=== PATIENT | female | born 1985 | race Caucasian/White ===

== ENCOUNTER 2016-09-06 01:27 | Emergency (ER) | payer BC, MEDICAID ==
[~2016-09-06] VITALS: Ht 170.2 cm; Wt 87.1 kg
[2016-09-06 01:30] VITALS: BP 143/59; PULSE 138; RESP 20; TEMP 101.3; O2SAT 95
--- NOTE | 2016-09-06 01:30 | NUR ---
Patient to ER bed 4 to gown for evaluation. Side rails up. Report given to Chela CLEANING.
--- NOTE | 2016-09-06 01:43 | NUR ---
High risk of SEPSIS. ER MD Coronel aware.
--- NOTE | 2016-09-06 01:50 | NUR ---
Pt in bed 8 with c/o flu like symptoms. Dr Coronel aware.
--- NOTE | 2016-09-06 01:51 | NUR ---
ER at bedside examining patient.
[2016-09-06 02:10] LABS: BILIRUBIN,URINE NEGATIVE (NEGATIVE); BLOOD, URINE NEGATIVE (NEGATIVE); CLARITY/URINE CLEAR (CLEAR); COLOR,URINE YELLOW (YELLOW); GLUCOSE,URINE NEGATIVE (NEGATIVE); KETONES,URINE NEGATIVE (NEGATIVE); LEUKOCYTE ESTERASE ,URINE TRACE (NEGATIVE); NITRITE, URINE NEGATIVE (NEGATIVE); PROTEIN URINE NEGATIVE (NEGATIVE); UROBILINOGEN,URINE 0.2 (0.2-1.0)
[2016-09-06] MEDS ORDERED: ACETAMINOPHEN 500 MG TABLET PO ONE (02:15)
--- NOTE | 2016-09-06 02:20 | NUR ---
# 22 gauge angiocath placed to LAC. Use of asceptic technique. Opsite placed over site. Blood return noted. Blood for lab drawn from site. Flushed with 10 cc of normal saline. No evidence of infiltration noted. Patient tolerated well.
[2016-09-06] MEDS ORDERED: ACETAMINOPHEN 500 MG TABLET ONE (02:22)
[2016-09-06 02:29] LABS: BACTERIA,URINE FEW /HPF (None Seen); MUCUS,URINE None Seen /LPF (None Seen); RBC,URINE 0-3 /HPF (0-3); WBC,URINE 0-3 /HPF (0-3)
[2016-09-06 02:35] LABS: BARBITURATE, URINE NEGATIVE (NEG <=200); BENZODIAZEPINE, URINE NEGATIVE (NEG <=150); CANNABINOID, URINE NEGATIVE (NEG <=50); COCAINE, URINE NEGATIVE (NEG <=150); METHAMPHETAMINES SCREEN,URINE NEGATIVE (NEG <=500); OPIATE, URINE NEGATIVE (NEG <=100); PHENCYCLIDINE SCREEN,URINE NEGATIVE (NEG <=25); UR TRICYCLIC ANTIDEPRESSANTS NEGATIVE (NEG <=300); URINE AMPHETAMINE NEGATIVE (NEG <=500); URINE METHADONE NEGATIVE (NEG <=200); URINE OXYCODONE SCREEN NEGATIVE (NEG <=100); URINE PROPOXYPHENE SCREEN NEGATIVE (NEG <=300)
[2016-09-06] MEDS ORDERED: NACL 0.9% 1,000 ML IV ONE (02:45)
[2016-09-06 03:28] LABS: BASOPHILS % (AUTO) 0.2 % (0.0-2.0); EOSINOPHILS # (AUTO) 0.2 K/uL (0.0-0.4); HEMATOCRIT 39.4 % (36-48); HEMOGLOBIN 13.3 g/dL (12.0-16.0); LYMPHOCYTES # (AUTO) 0.5 K/uL (1.0-5.5); LYMPHOCYTES % (AUTO) 5.1 % (20.5-51.5); MEAN CORPUSCULAR HEMOGLOBIN 29 pg (27-31); MEAN CORPUSCULAR HGB CONC 34 % (32-36); MEAN CORPUSCULAR VOLUME 87 fL (79.0-98.0); MONOCYTES # (AUTO) 0.6 K/uL (0.0-1.0); MONOCYTES % (AUTO) 6.4 % (1.7-9.3); NEUTROPHILS # (AUTO) 8.2 K/uL (1.8-7.7); NEUTROPHILS % (AUTO) 86.3 % (40.0-70.0); PLATELET COUNT (AUTO) 137 K/uL (130-430); RED BLOOD CELL COUNT(AUTO) 4.54 MIL/uL (4.2-6.2); RED CELL DISTRIBUTION WIDTH 12.1 % (9.0-15.0); WHITE BLOOD COUNT (AUTO) 9.5 K/uL (4.8-10.8)
--- NOTE | 2016-09-06 03:30 | NUR ---
temp quita now 98.[address] Coronel aware.
[2016-09-06 03:46] LABS: ALBUMIN 3.6 g/dL (3.4-4.8); CALCIUM 9.3 mg/dL (8.4-11.0); CREATININE 0.71 mg/dL (0.55-1.30); TOTAL BILIRUBIN 0.3 mg/dL (0.0-1.0); TOTAL PROTEIN, SERUM 7.3 g/dL (6.4-8.3)
--- NOTE | 2016-09-06 04:23 | NUR ---
Patient given written and verbal discharge instructions and verbalizes understanding. ER MD discussed with patient the results and treatment provided. Given copies of tests performed in ER. Patient in stable condition. ID arm band removed. IV catheter removed intact and dressing applied, no active bleeding. Rx of cephalexin given. Patient educated on pain management and to follow up with PMD. Pain Scale 0/10. Opportunity for questions provided and answered.
[2016-09-06 04:25] VITALS: BP 113/62; PULSE 88; RESP 18; TEMP 98.6; O2SAT 97
== END 2016-09-06 04:25 | disposition home or self-care (01) ==
LOC: SED 01:27
DX: B34.9 Viral infection, unspecified (principal); Z88.0 Allergy status to penicillin
CPT/HCPCS: 36415; 80053; 80307; 81000-TC; 81025; 83605; 85025; 86710; 87040-TC; 87086; 93005; 96360; 99285; J7030

== ENCOUNTER 2018-01-18 19:53 | Emergency (ER) | payer MEDICAID ==
[~2018-01-18] VITALS: Ht 170.2 cm; Wt 80.7 kg
[2018-01-18 20:11] VITALS: BP_SYST 119
[2018-01-18 21:50] VITALS: BP_SYST 120
== END 2018-01-18 21:50 | disposition home or self-care (01) ==
LOC: SED 19:53
DX: S83.92XA Sprain of unspecified site of left knee, initial encounter (principal); X58.XXXA Exposure to other specified factors, initial encounter; Y93.66 Activity, soccer; Y92.89 Other specified places as the place of occurrence of the external cause; Y99.8 Other external cause status; Z88.0 Allergy status to penicillin
CPT/HCPCS: 73564; 99284

== ENCOUNTER 2019-05-27 13:49 | Emergency (ER) | payer MEDICAID, OTHER ==
[~2019-05-27] VITALS: Ht 170.2 cm; Wt 81.6 kg
[2019-05-27 13:56] VITALS: BP_SYST 147
--- NOTE | 2019-05-27 16:20 | NUR ---
Patient to ER bed 1 to gown for evaluation. Side rails up. Report given to HERMILA Kaye.
--- NOTE | 2019-05-27 16:21 | NUR ---
Patient is awake, alert, and oriented x4. Patient reports that she was driving and had sudden onset chest pain with SOB. Patient reports a sharp chest pain 2/10 intermittently. She denies nausea, vomiting, and diarrhea.
--- NOTE | 2019-05-27 16:25 | NUR ---
ER Dr. Garrett at bedside examining patient.
[2019-05-27] MEDS ORDERED: KETOROLAC TROMETHAMINE 60 MG/2 ML VIAL IM ONE (16:30)
[2019-05-27] MEDS ORDERED: LORazepam 1 MG TABLET PO ONE (16:30)
[2019-05-27 16:47] LABS: BASOPHILS % (AUTO) 0.3 % (0.0-2.0); EOSINOPHILS # (AUTO) 0.1 K/uL (0.0-0.4); EOSINOPHILS % (AUTO) 2.3 % (0.0-4.0); HEMATOCRIT 36.7 % (36-48); HEMOGLOBIN 12.7 g/dL (12.0-16.0); LYMPHOCYTES # (AUTO) 0.8 K/uL (1.0-5.5); LYMPHOCYTES % (AUTO) 12.4 % (20.5-51.5); MEAN CORPUSCULAR HEMOGLOBIN 31 pg (27-31); MEAN CORPUSCULAR HGB CONC 35 % (32-36); MEAN CORPUSCULAR VOLUME 89 fL (79.0-98.0); MONOCYTES # (AUTO) 0.6 K/uL (0.0-1.0); MONOCYTES % (AUTO) 8.8 % (1.7-9.3); NEUTROPHILS # (AUTO) 4.9 K/uL (1.8-7.7); NEUTROPHILS % (AUTO) 76.2 % (40.0-70.0); PLATELET COUNT (AUTO) 159 K/uL (130-430); RED BLOOD CELL COUNT(AUTO) 4.12 MIL/uL (4.2-6.2); RED CELL DISTRIBUTION WIDTH 12.1 % (9.0-15.0); WHITE BLOOD COUNT (AUTO) 6.5 K/uL (4.8-10.8)
[2019-05-27 17:00] LABS: CALCIUM 8.3 mg/dL (8.4-11.0); CREATININE 0.72 mg/dL (0.55-1.30); POTASSIUM 3.6 mmol/L (3.5-5.1)
[2019-05-27 17:05] LABS: ALBUMIN 3.4 g/dL (3.4-4.8); TOTAL BILIRUBIN 0.3 mg/dL (0.0-1.0)
[2019-05-27 17:30] VITALS: BP_SYST 118
--- NOTE | 2019-05-27 17:30 | NUR ---
Patient given written and verbal discharge instructions and verbalizes understanding. ER MD discussed with patient the results and treatment provided. Patient in stable condition. ID arm band removed.Patient educated on pain management and to follow up with PMD. Pain Scale 0/10. Opportunity for questions provided and answered. Medication side effect fact sheet provided.
== END 2019-05-27 17:30 | disposition home or self-care (01) ==
LOC: SED 13:49
DX: R07.89 Other chest pain (principal); Z88.0 Allergy status to penicillin
CPT/HCPCS: 36415; 71045; 80053; 81025; 82550-TC; 83880; 84484; 85025; 93005; 99284; J1885